=== PATIENT | female | born 2000 | race Caucasian/White ===

== ENCOUNTER 2022-03-01 16:39 | Emergency (ER) | payer BC, SELFPAY ==
[2022-03-01 16:51] VITALS: BP 115/70; PULSE 80; RESP 18; TEMP 36.2; O2SAT 100; BMI 29.2
--- NOTE | 2022-03-01 18:15 | CRLHL7_ITS ---
For Patients: As a result of the Cures Act, medical imaging exams and procedure reports are released immediately into your electronic medical record. You may view this report before your referring provider. If you have questions, please contact your health care provider. Indication: Injury, pain Technique: Right hand 3 views. Comparison: None Findings: Bones: Alignment is normal. No fractures or bone lesions. Joint spaces: Unremarkable. Soft tissues: Unremarkable. Impression: Unremarkable right hand. Dictated by Israel Hollingsworth MD @ 03/01/2022 7:06:02 PM (Electronically Signed)
--- NOTE | 2022-03-01 18:39 | ED.UPPEXIN ---
HPI - Extremity Injury (Upper) General Chief Complaint: Extremity Pain/Injury, Upper Stated Complaint: Right Hand Injury Time Seen by Provider: 03/01/22 16:43 History of Present Illness HPI narrative: Kayleen waters is a 21-year-old female patient presents emergency department after striking a wall at approximately 2:00 a.m. this a.m.. The patient states that she was intoxicated at the time of injury. She states as the day has progressed, she has developed increasing swelling, bruising, and pain. She has not been previously seen or evaluated for this acute concern. She denies any medications prior to evaluation. Kayleen denies numbness, tingling, or weakness apart from secondary to pain. She denies other acute concerns or complaints. MD complaint: injury to: left Related Data Home Medications Medication Instructions Recorded Confirmed prazosin 1 mg capsule 1 mg PO DAILY 03/01/22 03/01/22 sertraline 50 mg tablet 50 mg PO DAILY 03/01/22 03/01/22 Allergies Allergy/AdvReac Type Severity Reaction Status Date / Time codeine Allergy Verified 03/01/22 16:54 Penicillins Allergy Verified 03/01/22 16:54 Review of Systems Const: Denies: fever, chills, fatigue or malaise Eyes: Denies: change in vision or blurry vision ENMT: Denies: neck pain Musculo: Reports: extremity pain, extremity swelling, joint pain, limited range of motion and joint swelling; Denies: back pain or neck pain Integ/Breast: Reports: skin pain, skin swelling and other (bruising) Neuro: Denies: numbness in extremities, weakness in extremities, lack of coordination or involuntary movements Endo: Denies: fatigue Master/Lymph: Denies: easy bruising PFSH PFSH Social History Smoking Status: Never smoker Do you use any of these nicotine containing products: None Second hand tobacco smoke exposure: No How often do you have a drink containing alcohol: 2-4 times a month How many standard drinks containing alcohol do you have on a typical day: 1 or 2 How often do you have six or more drinks on one occasion: Never AUDIT-C Alcohol total score: 2 Non-prescribed substance use: denies use service: No Exam Const: Vital Signs, click to edit/add: Vital Signs - 24 hr 03/01/22 16:51 Temperature 97.2 F L Pulse Rate [Right Pulse Oximeter] 80 Respiratory Rate 18 Blood Pressure [Ri ght Upper Arm] 115/70 Pulse Oximetry 100 Documenting provider has reviewed patient's vital signs: yes Common normals: no apparent distress, average body habitus, oriented x3, no limitations, healthy appearing, alert and well nourished Orientation/consciousness: Yes awake, Yes oriented to person, Yes oriented to place and Yes oriented to time HENMT: Common normals: normocephalic, head/scalp atraumatic and hearing grossly normal bilaterally Head and scalp: normocephalic and atraumatic Eye: Common normals: EOMs intact bilaterally General eye: normal appearance of both eyes Resp: Common normals: normal respiratory effort, no retractions, no use of accessory muscles and clear to auscultation bilaterally Effort & inspection: able to speak in complete sentences Auscultation: clear to auscultation bilaterally Cardio: Common normals: regular rate, regular rhythm, S1 normal heart sound, S2 normal heart sound, no gallops, no clicks and no murmurs Rate: regular rate Rhythm: regular rhythm Heart sounds: S1 normal and S2 normal Back & Pelvis: Common normals: thoracic and lumbar spine normal to inspection Extremity: General: normal exam except as noted Right upper extremity: hand and digits Right hand and digits: inspection (swollen and edematous; bruised), palpation (tender to palpation with increased tenderness noted at 3rd MCP joint), ROM exam (full with tenderness noted on active testing), neurovascular exam (sensation and motor intact) and hand special tests Neuro: Common normals: oriented x3, CN's II-XII intact bilaterally, moves all extremities, no focal motor deficits and no sensory deficits noted Sensorium/orientation: awake, alert, oriented to person, oriented to place and oriented to time Gait (neuro): normal gait Motor exam: muscle tone normal throughout and no movement abnormalities noted Psych: Common normals: mental status grossly normal, thought process normal, cooperative, affect normal and activity/motor behavior normal Appearance: grossly normal Thought process: normal thought process Skin: Common normals: no rashes or lesions noted General skin exam: no rashes or lesions noted Course Course Hospital Course: Kayleen presented to the ED for evaluation and treatment of right hand pain after injury 2/2 hitting a wall. The patient had imaging and was given an brody wrap for compression to assist with swelling and symptoms. The patient was offered pain medication but was declined. Patient reports improvement in symptoms. Patient's vital signs have remained stable. The results were discussed, and the patient verbalized understanding. Reasons for follow-up or return were discussed. Vital Signs Vital signs: Initial Vital Signs Temperature 97.2 F L 03/01/22 16:51 Temperature Source Temporal Artery Scan 03/01/22 16:51 Pulse Rate 80 03/01/22 16:51 Pulse Rhythm 03/01/22 16:51 Respiratory Rate 18 03/01/22 16:51 Blood Pressure 115/70 03/01/22 16:51 Blood Pressure Mean 85 03/01/22 16:51 Blood Pressure Position Sitting 03/01/22 16:51 Pulse Oximetry 100 03/01/22 16:51 Vital Signs Temperature 97.2 F L 03/01/22 16:51 Pulse Rate 80 03/01/22 16:51 Respiratory Rate 18 03/01/22 16:51 Blood Pressure 115/70 03/01/22 16:51 Pulse Oximetry 100 03/01/22 16:51 Temperature 97.2 F L 03/01/22 16:51 Pulse Rate 80 03/01/22 16:51 Respiratory Rate 18 03/01/22 16:51 Blood Pressure 115/70 03/01/22 16:51 Pulse Oximetry 100 03/01/22 16:51 MDM - Extremity Injury (Upper) MDM Narrative Medical decision making narrative: Differential diagnoses considered include: sprain and strain, contusion, nerve root entrapment, radiculopathy, muscle spasm, dislocation, and fracture. Imaging Data Hand XR: My impression: No acute fracture or dislocation. Radiologist's impression: Impression: Unremarkable right hand. Discharge Plan Discharge Clinical Impression: Contusion of hand including fingers Patient Disposition: Home, Self-Care Condition: Improved Instructions: Contusion in Adults (ED) Activity Level: Activity as Tolerated Discharge Diet: Regular and Heart Healthy (2 gm sodium, low fat) Prescriptions: No Action prazosin 1 mg capsule 1 mg PO DAILY sertraline 50 mg tablet 50 mg PO DAILY Follow Up/Referrals: Katina Frazier MD [Primary Care Provider] - Stand Alone Forms: [employer] Info Instructions
== END 2022-03-01 19:02 | disposition home or self-care (01) ==
PROVIDERS: Emergency Provider Family Medicine; PCP Pediatrics
DX: S60.221A Contusion of right hand, initial encounter (principal); W22.8XXA Striking against or struck by other objects, initial encounter
CPT/HCPCS: 73130; 99281; 99283

== ENCOUNTER 2022-10-18 21:12 | Emergency (ER) | payer BC, SELFPAY ==
[2022-10-18 21:28] VITALS: BP 114/66; PULSE 114; RESP 16; TEMP 36.6; O2SAT 100; BMI 28.0
--- NOTE | 2022-10-18 22:34 | CRLHL7_ITS ---
For Patients: As a result of the Century Cures Act, medical imaging exams and procedure reports are released immediately into your electronic medical record. You may view this report before your referring provider. If you have questions, please contact your health care provider. INDICATION: Right lower quadrant pain. TECHNIQUE: CT abdomen and pelvis acquired with 100 cc Omnipaque 350 IV contrast. COMPARISON: None. FINDINGS: Lower chest: Unremarkable. Liver: Unremarkable. Normal in size and attenuation. No suspicious masses. Gallbladder and bile ducts: Unremarkable. No stones or inflammation. No biliary dilatation. Pancreas: Unremarkable. No mass or inflammation. Spleen: Unremarkable. Normal in size. No masses. Adrenal glands: Unremarkable. No nodules. Kidneys: Unremarkable. No suspicious masses, stones, or hydronephrosis. GI tract: Unremarkable. Normal in caliber. No sign of mass or inflammation. Normal appendix. Vasculature: Abdominal aorta is normal in caliber. Mesenteric arteries are patent. Lymph nodes: No lymphadenopathy. Peritoneum/Abdominal Wall: Small amount of free fluid in the right adnexa and the inferior right paracolic gutter. No free air. Unremarkable abdominal wall. Pelvis: 5.4 cm mildly complex cystic lesion in the right adnexa. Unremarkable uterus and left ovary. Bones: Mild S shaped scoliotic curvature of the spine. Otherwise, unremarkable for age. IMPRESSION: 5.4 cm mildly complex cyst in the right adnexa. Recommend pelvic ultrasound for further characterization and to exclude ovarian torsion. Normal appendix. No other acute findings in the abdomen and pelvis. Please note that all CT scans at this facility use dose modulation, iterative reconstruction, and/or weight-based dosing when appropriate to reduce radiation dose to as low as reasonably achievable. Dictated by Jono Lara MD @ 10/19/2022 12:05:48 AM (Electronically Signed)
--- NOTE | 2022-10-18 22:35 | ED.GENADULT ---
HPI - General Adult General Chief complaint: Abdominal Pain Stated complaint: Lower right stomach pain since yesterday Time Seen by Provider: 10/18/22 22:14 Source: patient Mode of arrival: ambulatory Limitations: no limitations History of Present Illness HPI narrative: 21-year-old female coming in today complaining of right lower quadrant pain has started yesterday. Pain has been progressively getting worse today. She has felt nauseated but has not vomited. Denies any fevers or chills. Movement makes it worse. She has had a decreased appetite today. Last bowel movement was today and was normal. She has no urinary urgency or dysuria, does complain of increased frequency. Patient is sexually active in a homosexual, monogamous relationship. Her last menses was 3 weeks ago and was normal. She states that the car ride did make her pain worse. She generally healthy and takes no medications. Denies any intra-abdominal surgeries in the past. Related Data Home Medications Medication Instructions Recorded Confirmed sertraline 50 mg tablet 50 mg PO DAILY 03/01/22 10/18/22 Allergies Allergy/AdvReac Type Severity Reaction Status Date / Time codeine Allergy Verified 03/01/22 16:54 Penicillins Allergy Verified 03/01/22 16:54 Review of Systems Status of ROS: Reports: 10 or more systems reviewed and unremarkable except as noted in History and below [facility] Social History Smoking Status: Never smoker Do you use any of these nicotine containing products: None Second hand tobacco smoke exposure: No How often do you have a drink containing alcohol: 2-4 times a month How many standard drinks containing alcohol do you have on a typical day: 1 or 2 How often do you have six or more drinks on one occasion: Never AUDIT-C Alcohol total score: 2 Non-prescribed substance use: denies use service: No Exam Narrative: Exam Narrative: Well-nourished well-developed patient in no acute distress. Alert and oriented. Answers questions appropriately. Mood and affect are appropriate. Thoughts are goal oriented and rational. No tangential or magical thinking noted. Patient speaks in full sentences without needing to catch their breath. HEENT: Normocephalic atraumatic. Pupils are equally round reactive to light. Extraocular muscles are intact. Conjunctivae are moist without any icterus noted. Moist mucous membranes. Posterior pharynx is normal. Neck is soft without any lymphadenopathy or thyromegaly. No masses are appreciated. Cardiovascular: Heart is regular rate and rhythm S1 and S2 are present without any murmurs. Lungs: Clear to auscultation bilaterally no wheezes rhonchi or rales are appreciated. Patient takes deep breaths without any discomfort. Abdomen: Soft and nondistended. Patient has pain at McBurney's point, pain radiates down into the right lower quadrant. She does have rebound tenderness. She has normal bowel sounds. She has a negative psoas sign. She has a positive Rovsing's sign. Extremities: Bilateral lower extremities are without edema. Normal DP and PT pulses. Skin: Well perfused without any obvious rashes. Const: Vital Signs, click to edit/add: Vital Signs - 24 hr 10/18/22 21:28 Temperature 98 F Pulse Rate [Pulse Oximeter] 114 H Respiratory Rate 16 Blood Pressure [Ri ght Upper Arm] 114/66 Pulse Oximetry 100 Oxygen Delivery Me thod Room Air Course Course Hospital Course: IV was established and labs were drawn. Given her abnormal abdominal exam, with pain extending into McBurney's point, abdominal CT was ordered to rule out appendicitis. Other things considered include UTI, kidney stone, ovarian cyst, ectopic . CT scan showing a right adnexal complex cyst, normal appendix. Vital Signs Vital signs: Initial Vital Signs Temperature 98 F 10/18/22 21:28 Temperature Source Temporal Artery Scan 10/18/22 21:28 Pulse Rate 114 H 10/18/22 21:28 Respiratory Rate 16 10/18/22 21:28 Blood Pressure 114/66 10/18/22 21:28 Blood Pressure Mean 82 10/18/22 21:28 Pulse Oximetry 100 10/18/22 21:28 Oxygen Delivery Method Room Air 10/18/22 21:28 Vital Signs Temperature 98 F 10/18/22 21:28 Pulse Rate 114 H 10/18/22 21:28 Respiratory Rate 16 10/18/22 21:28 Blood Pressure 114/66 10/18/22 21:28 Pulse Oximetry 100 10/18/22 21:28 Oxygen Delivery Method Room Air 10/18/22 21:28 Temperature 98 F 10/18/22 21:28 Pulse Rate 114 H 10/18/22 21:28 Respiratory Rate 16 10/18/22 21:28 Blood Pressure 114/66 10/18/22 21:28 Pulse Oximetry 100 10/18/22 21:28 Oxygen Delivery Method Room Air 10/18/22 21:28 Medical Decision Making MDM Narrative Medical decision making narrative: 21-year-old female with a right-sided ovarian complex cyst. Patient should have a ultrasound for further characterization. We will set this up for her as an outpatient. In the meantime we discussed symptomatic treatment. Lab Data Lab results reviewed: Yes I reviewed the patient's lab results Labs: Lab Results 10/18/22 10/18/22 Range/Units 22:00 22:40 WBC 10.07 (4.50-11.00) K/uL RBC 4.58 (4.00-5.20) m/uL Hgb 13.5 (12.0-16.0) gm/dL Hct 40.2 (33.0-51.0) % MCV 88 (80-100) fL MCH 30 (26-34) pg MCHC 34 (32-36) gm/dL Plt Count 243 (140-440) K/uL Neut % (Auto) 58.8 (42.0-72.0) % Lymph % (Auto) 28.9 (20-44) % [place] % (Auto) 9.1 (0.0-11.0) % Eos % (Auto) 1.9 (0.0-7.0) % Baso % (Auto) 0.2 (0.0-3.0) % Neut # (Auto) 5.90 (1.7-7.0) K/uL Lymph # (Auto) 2.90 (0.90-2.90) K/uL [place] # (Auto) 0.90 (0.00-0.90) K/UL Eos # (Auto) 0.20 (0.00-0.50) K/uL Baso # (Auto) 0.00 (0.00-0.30) K/uL ESR 7 (2-20) mm/hr Sodium 131 L (135-149) mmol/L Potassium 3.6 (3.6-5.1) mmol/L Chloride 97 (96-114) mmol/L Carbon Dioxide 27 (20-32) mmol/L BUN 11 (5-24) mg/dL Creatinine 0.7 (0.6-1.2) mg/dL Estimated Creat Clear 111.62 Estimated GFR 128 ml/min Glucose 88 (60-115) mg/dL Lactate 1.0 (0.5-1.9) mmol/L Calcium 9.2 (8.7-10.8) mg/dL Total Bilirubin 0.4 (0.1-1.5) mg/dL Direct Bilirubin 0.2 (0.0-0.5) mg/dL AST 29 (12-35) U/L ALT 26 (4-35) U/L Alkaline Phosphatase 69 (40-150) U/L C-Reactive Protein < 0.5 L (0.5-1.0) mg/dL Total Protein 7.8 (6.0-8.3) g/dL Albumin 4.4 (3.3-5.0) g/dL Lipase 63 (23-300) U/L HCG, Qual Negative (Negative) Urine Color Yellow (Yellow) Urine Appearance Slightly Cloudy A (Clear) Urine pH 8.0 (5.0-8.5) Ur Specific [place] 1.015 (1.000-1.030) Urine Protein Negative (Negative) Urine Glucose (UA) Negative (Negative) Urine Ketones Negative (Negative) Urine Blood Negative (Negative) Urine Nitrite Negative (Negative) Urine Bilirubin Negative (Negative) Urine Urobilinogen 0.2 (0.2-1.0) Ur Leukocyte Esterase Negative (Negative) Urine RBC 2-5 A (0-2) Urine WBC 25-50 A (0-5) Ur Squamous Epith Cells Moderate A (None-Few) Other Sediment YEAST (None) Urine Bacteria Moderate A (None) Imaging Data CT scan - abdomen: Attestation: I have reviewed the pertinent imaging results. Radiologist's impression: CT abdomen and pelvis acquired with 100 cc Omnipaque 350 IV contrast. COMPARISON: None. FINDINGS: Lower chest: Unremarkable. Liver: Unremarkable. Normal in size and attenuation. No suspicious masses. Gallbladder and bile ducts: Unremarkable. No stones or inflammation. No biliary dilatation. Pancreas: Unremarkable. No mass or inflammation. Spleen: Unremarkable. Normal in size. No masses. Adrenal glands: Unremarkable. No nodules. Kidneys: Unremarkable. No suspicious masses, stones, or hydronephrosis. GI tract: Unremarkable. Normal in caliber. No sign of mass or inflammation. Normal appendix. Vasculature: Abdominal aorta is normal in caliber. Mesenteric arteries are patent. Lymph nodes: No lymphadenopathy. Peritoneum/Abdominal Wall: Small amount of free fluid in the right adnexa and the inferior right paracolic gutter. No free air. Unremarkable abdominal wall. Pelvis: 5.4 cm mildly complex cystic lesion in the right adnexa. Unremarkable uterus and left ovary. Bones: Mild S shaped scoliotic curvature of the spine. Otherwise, unremarkable for age. IMPRESSION: 5.4 cm mildly complex cyst in the right adnexa. Recommend pelvic ultrasound for further characterization and to exclude ovarian torsion. Normal appendix. No other acute findings in the abdomen and pelvis. Discharge Plan Discharge Clinical Impression: Ovarian cyst Patient Disposition: Home, Self-Care Condition: Stable Additional Instructions: Okay to use ibuprofen 600 mg 3 times a day with meal as needed. Okay to use a heating pad to the uncomfortable area, do not apply heat directly to skin. You will need to have if ultrasound is outpatient-information will be provided to you to set up an appointment with primary care provider to get this done. Prescriptions: No Action sertraline 50 mg tablet 50 mg PO DAILY Follow Up/Referrals: Katina Frazier MD [Primary Care Provider] - Stand Alone Forms: [employer] Info Instructions
[2022-10-18 22:38] LABS: Appearance Urine Slightly Cloudy (Clear); Bilirubin Urine Negative (Negative); Blood Urine Negative (Negative); Color Urine Yellow (Yellow); Glucose Urine Negative (Negative); Ketones Urine Negative (Negative); Leukocyte Esterase Urine Negative (Negative); Nitrite Urine Negative (Negative); Protein Urine Negative (Negative); Specific Gravity Urine 1.015 (1.000-1.030); Urobilinogen Urine 0.2 (0.2-1.0)
[2022-10-18 22:52] LABS: Bacteria Urine Moderate; Other Sediment Urine YEAST; Squamous Epithelial Cell Urine Moderate (None-Few); WBC Urine 25-50 (0-5)
[2022-10-18 22:53] LABS: HCG Qualitative* Negative (Negative)
[2022-10-18 23:15] LABS: Albumin* 4.4 g/dL (3.3-5.0); Chloride* 97 mmol/L (96-114); Potassium* 3.6 mmol/L (3.6-5.1)
[2022-10-18 23:17] LABS: Creatinine* 0.7 mg/dL (0.6-1.2); Est. Creatinine Clearance* 111.62; Estimated Glomerular Filt Rate 128 ml/min
[2022-10-18 23:18] LABS: Alkaline Phosphatase* 69 U/L (40-150); Aspartate Amino Transferase* 29 U/L (12-35); Bilirubin Direct* 0.2 mg/dL (0.0-0.5); Bilirubin Total* 0.4 mg/dL (0.1-1.5); Blood Urea Nitrogen* 11 mg/dL (5-24); Calcium* 9.2 mg/dL (8.7-10.8); Carbon Dioxide* 27 mmol/L (20-32); Glucose* 88 mg/dL (60-115); Lipase* 63 U/L (23-300); Sodium* 131 mmol/L (135-149); Total Protein* 7.8 g/dL (6.0-8.3)
[2022-10-18 23:19] LABS: Alanine Aminotransferase* 26 U/L (4-35)
[2022-10-18 23:20] LABS: Hematocrit 40.2 % (33.0-51.0); Hemoglobin* 13.5 gm/dL (12.0-16.0); Mean Corpuscular Volume 88 fL (80-100); Red Blood Count 4.58 m/uL (4.00-5.20); White Blood Count* 10.07 K/uL (4.50-11.00)
[2022-10-18 23:21] LABS: Basophils Percent Auto 0.2 % (0.0-3.0); C Reactive Protein* < 0.5 mg/dL (0.5-1.0); Eosinophils Percent Auto 1.9 % (0.0-7.0); Immature Granulocytes Pct Auto 1.1 %; Lymphocytes Percent Auto 28.9 % (20-44); Mean Corpuscular HGB Conc 34 gm/dL (32-36); Mean Corpuscular Hemoglobin 30 pg (26-34); Monocytes Percent Auto 9.1 % (0.0-11.0); Neutrophils Percent Auto 58.8 % (42.0-72.0); Platelet Count* 243 K/uL (140-440); Slide Review Reflex No
[2022-10-19 00:06] LABS: Erythrocyte SedimentationRate* 7 mm/hr (2-20)
== END 2022-10-19 00:35 | disposition home or self-care (01) ==
PROVIDERS: Emergency Provider Family Medicine; PCP Pediatrics
DX: N83.201 Unspecified ovarian cyst, right side (principal)
CPT/HCPCS: 36415; 74177; 80048; 80076; 81001; 83605; 83690; 84703; 85025; 85651; 86140; 87086; 99284; Q9967

== ENCOUNTER 2022-10-20 16:44 | Outpatient (CLI) | payer BC, SELFPAY ==
--- NOTE | 2022-10-20 17:00 | CRLHL7_ITS ---
For Patients: As a result of the Century Cures Act, medical imaging exams and procedure reports are released immediately into your electronic medical record. You may view this report before your referring provider. If you have questions, please contact your health care provider. CLINICAL HISTORY: right adnexa mass seen on CT CT 10/18/2022 TECHNIQUE: 2D eng scale and color Doppler images were acquired of the pelvis using a transvaginal approach. Spectral Doppler evaluation of the right ovary also performed. FINDINGS: On transvaginal imaging, the myometrium has a normal uniform echotexture. The uterus measures 7.5 x 3.3 x 4.3 cm. The endometrial lining and measures 12 mm in thickness. The left ovary measures 3.0 x 2.3 x 1.9 cm in size and the right ovary measures 6.4 x 5.0 x 5.8 cm. The ovaries demonstrate normal arterial and venous blood flow on color Doppler analysis. Normal spectral Doppler evaluation of the right ovary. Moderate pelvic free fluid is present. The right ovarian echotexture is heterogeneous with suspicion of a large complex cyst containing hypoechoic internal echotexture along with areas of fluid measuring 5.3 x 4.7 x 4.8 cm. IMPRESSION: Enlarged right ovary without torsion. Suspicion of a hemorrhagic right ovarian cyst measuring 5.3 cm. Moderate pelvic free fluid. Follow-up in 8-12 weeks recommended for further evaluation. Dictated by Israel Hollingsworth MD @ 10/21/2022 10:50:53 AM (Electronically Signed)
== END 2022-10-20 16:45 | disposition home or self-care (01) ==
LOC: US 16:46
PROVIDERS: PCP Pediatrics; Visit Provider Family Medicine
DX: R19.03 Right lower quadrant abdominal swelling, mass and lump (principal); N83.201 Unspecified ovarian cyst, right side; N83.8 Other noninflammatory disorders of ovary, fallopian tube and broad ligament
CPT/HCPCS: 76830; 93976

== ENCOUNTER 2022-10-28 20:40 | Emergency (ER) | payer BC, SELFPAY ==
[2022-10-28 22:00] VITALS: BP 115/73; PULSE 74; RESP 16; TEMP 36.4; O2SAT 100; BMI 29.2
--- NOTE | 2022-10-28 22:37 | ED.ABDPAIN ---
HPI - Abdominal Pain General Chief Complaint: Abdominal Pain Stated Complaint: Poss Ovarian Cyst Vaginal Bleeding Pain Time Seen by Provider: 10/28/22 22:15 History of Present Illness HPI narrative: This 21-year-old female comes in reporting right lower quadrant abdominal pain for the past week or more. She has been seen in the emergency department for this type of pain and did have a CT scan of her abdomen and pelvis which showed evidence of a right ovarian cyst. She did follow-up with an ultrasound that verified these same findings and ruled out any evidence of torsion. The patient returns today because her pain was more intense. She states that she has just been taking Tylenol and was not prescribed any medicine for pain. She does have von Willebrand's disease and does not take NSAIDs. She also reports some midcycle vaginal bleeding but this is not excessive. She did have some lightheadedness and nausea with 1 vomiting episode when the pain was more intense earlier today but arrives here with normal vital signs and no such symptoms. Related Data Home Medications Medication Instructions Recorded Confirmed sertraline 50 mg tablet 50 mg PO DAILY 03/01/22 10/18/22 Previous Rx's Medication Instructions Recorded hydrocodone 5 mg-acetaminophen 325 1 tab PO Q4-6H PRN pain #15 tabs 10/28/22 mg tablet Allergies Allergy/AdvReac Type Severity Reaction Status Date / Time codeine Allergy Verified 03/01/22 16:54 Penicillins Allergy Verified 03/01/22 16:54 Review of Systems Status of ROS Reports: 10 or more systems reviewed and unremarkable except as noted in History and below Narrative Constitutional: No fevers, no weight gain or loss. Eyes: No discharge. No vision changes. HENT: No congestion, no sore throat, no ear pain. Cardiovascular: No chest pain, no palpitations. Respiratory: No shortness of breath, no wheezes, no cough. Gastrointestinal: Abdominal pain as described above. No diarrhea. An episode of nausea and emesis earlier today. Genitourinary: No dysuria, no hematuria. Musculoskeletal: Normal range of motion. Skin: No rashes, no pruritis. Neurological: No dizziness, weakness, sensory change, speech change. Endo/Heme/Allergies: No bruising or bleeding. No polydipsia. Pysch: no suicidality, no anxiety, no insomnia. All other systems reviewed and are negative. PFSH PFS Social History Smoking Status: Never smoker Do you use any of these nicotine containing products: None Second hand tobacco smoke exposure: No How often do you have a drink containing alcohol: 2-4 times a month How many standard drinks containing alcohol do you have on a typical day: 1 or 2 How often do you have six or more drinks on one occasion: Never AUDIT-C Alcohol total score: 2 Non-prescribed substance use: denies use service: No Exam Narrative: Exam Narrative: Constitutional: Well-developed, well-nourished, no acute distress. HEENT: Normocephalic, atraumatic. Neck: Normal range of motion. Nontender. Supple. Heart: Regular. No murmurs. Normal rate. Intact distal pulses. Lungs: Clear to auscultation. No chest discomfort. No wheezes, rhonchi, or rales. Abdomen: Normal bowel sounds. Tenderness over the right ovary in the lower right abdomen. Mild rebound tenderness. Genitalia: Deferred. Back: No midline tenderness. Normal range of motion. Extremities: Normal range of motion. No injury. Skin: Intact. No rash. Warm. No erythema or pallor. Neurologic: No altered sensation. No weakness. Alert and oriented. Psychiatric: No suicidality. No anxiety or depression. No insomnia. Nursing notes and vitals signs are reviewed. Const: Vital Signs, click to edit/add: Vital Signs - 24 hr 10/28/22 22:00 Temperature 97.6 F Pulse Rate [Left P ulse Oximeter] 74 Respiratory Rate 16 Blood Pressure [Le ft Upper Arm] 115/73 Pulse Oximetry 100 Oxygen Delivery Me thod Room Air Course Vital Signs Vital signs: Initial Vital Signs Temperature 97.6 F 10/28/22 22:00 Temperature Source Temporal Artery Scan 10/28/22 22:00 Pulse Rate 74 10/28/22 22:00 Pulse Rhythm Regular 10/28/22 22:00 Pulse Strength 3+ Normal 10/28/22 22:00 Respiratory Rate 16 10/28/22 22:00 Blood Pressure 115/73 10/28/22 22:00 Blood Pressure Mean 87 10/28/22 22:00 Blood Pressure Position Sitting 10/28/22 22:00 Pulse Oximetry 100 10/28/22 22:00 Oxygen Delivery Method Room Air 10/28/22 22:00 Vital Signs Temperature 97.6 F 10/28/22 22:00 Pulse Rate 74 10/28/22 22:00 Respiratory Rate 16 10/28/22 22:00 Blood Pressure 115/73 10/28/22 22:00 Pulse Oximetry 100 10/28/22 22:00 Oxygen Delivery Method Room Air 10/28/22 22:00 Temperature 97.6 F 10/28/22 22:00 Pulse Rate 74 10/28/22 22:00 Respiratory Rate 16 10/28/22 22:00 Blood Pressure 115/73 10/28/22 22:00 Pulse Oximetry 100 10/28/22 22:00 Oxygen Delivery Method Room Air 10/28/22 22:00 MDM - Abdominal Pain MDM Narrative Medical decision making narrative: This patient comes in with persistent right lower quadrant abdominal pain that was diagnosed as an ovarian cyst last week. She has continued to have discomfort but does not report any new symptoms other than some mild midcycle vaginal bleeding. I did discuss lab and imaging options with the patient and stated that these can certainly be repeated. In a process of shared decision making she declined any further study. I stated that I was happy to do a better job of treating her pain and recommended a prescription of [place] and Zofran. Patient agreed with this plan. She understands signs or symptoms that would indicate a need for return and re-evaluation. Discharge Plan Discharge Clinical Impression: Ovarian cyst Patient Disposition: Home, Self-Care Condition: Unchanged Additional Instructions: Take medication as needed and indicated. Follow-up with OBGYN clinic if not improving or worsening. Also return to emergency department if worsening. Prescriptions: New hydrocodone-acetaminophen 5-325 mg tablet 1 tab PO Q4-6H PRN (Reason: pain) Qty: 15 0RF No Action sertraline 50 mg tablet 50 mg PO DAILY Follow Up/Referrals: Katina Frazier MD [Primary Care Provider] - Stand Alone Forms: [employer] Info Instructions
== END 2022-10-28 22:56 | disposition home or self-care (01) ==
LOC: ED 22:48
PROVIDERS: Emergency Provider Emergency Medicine Emergency Medical Services; PCP Pediatrics
DX: N83.201 Unspecified ovarian cyst, right side (principal)
CPT/HCPCS: 99284

== ENCOUNTER 2022-12-25 10:57 | Outpatient (CLI) | payer BC, SELFPAY ==
--- NOTE | 2022-12-25 11:15 | CRLHL7_ITS ---
For Patients: As a result of the Century Cures Act, medical imaging exams and procedure reports are released immediately into your electronic medical record. You may view this report before your referring provider. If you have questions, please contact your health care provider. CLINICAL HISTORY: Follow-up right ovarian cyst Comparison 10/20/2022 TECHNIQUE: 2D eng scale ultrasound. In addition color Doppler and spectral Doppler analysis was performed of the pelvis using a transvaginal approach. FINDINGS: On transvaginal imaging, the myometrium has a normal uniform echotexture. The uterus measures 7.2 x 2.8 x 4.2 cm. The endometrial lining appears normal and measures 5 mm in thickness. The right ovary measures 3.9 x 2.7 x 3.1 cm in size and the left ovary measures 3.4 x 2.0 x 3.1 cm. Decreased size of right ovarian cyst, now measuring 2.8 x 2.3 x 2.6 cm. Previously, this measured 5.3 cm. The ovaries demonstrate normal arterial and venous blood flow on color Doppler and spectral Doppler analysis. There are no suspicious fluid collections within the cul-de-sac. IMPRESSION: Decreased size of complex right ovarian cyst compared to the prior study, now measuring 2.8 cm, most consistent with a hemorrhagic cyst. Dictated by Israel Hollingsworth MD @ 12/25/2022 12:12:39 PM (Electronically Signed)
== END 2022-12-25 10:58 | disposition home or self-care (01) ==
LOC: US 10:58
PROVIDERS: PCP Pediatrics; Visit Provider Obstetrics & Gynecology
DX: N83.201 Unspecified ovarian cyst, right side (principal)
CPT/HCPCS: 76830; 93976

== ENCOUNTER 2024-06-02 20:36 | Emergency (ER) | payer BC, SELFPAY ==
[2024-06-02 20:47] VITALS: BP 118/60; PULSE 95; RESP 16; TEMP 36.7; O2SAT 98; BMI 28.8
--- NOTE | 2024-06-02 20:55 | ED.NAVMDI ---
HPI - Nausea/Vomiting/Diarrhea General Date Seen: 06/02/24 Chief complaint: Nausea/Vomiting Stated complaint: vomiting, dehydrated Time Seen by Provider: 06/02/24 20:40 Source: patient Mode of arrival: ambulatory Limitations: no limitations History of Present Illness HPI Narrative: Patient is a 23-year-old female presenting to emergency department for nausea and vomiting has been going on for the past few days. She states symptoms started about 3 days ago and she initially had a fever but has not had a fever for the past couple days. States she vomits whenever she tries to eat anything. Has had some mild lightheadedness. Denies chest pain, shortness of breath, headache, weakness, numbness, body aches. She is concerned she has the flu. Is not aware of any sick contacts. Has not had any diarrhea. Has been able to tolerate small amounts of water at a time but has also tried this take some Tylenol and has vomited up to Tylenol. Has not had any nausea medication. Denies symptoms like this before. Has pain in the epigastric region that she states started after the vomiting. She thinks the pain is from her vomiting. States she has vomited at least 10 times in the past 2 days. Related Data Home Medications ?Medication ?Instructions ?Recorded ?Confirmed sertraline 50 mg tablet 50 mg PO DAILY 03/01/22 06/02/24 dextroamphetamine-amphetamine ER 1 cap PO DAILY 12/26/22 06/02/24 10 mg 24hr capsule,extend release (Adderall XR) buspirone 7.5 mg tablet mg PO 06/02/24 Allergies Allergy/AdvReac Type Severity Reaction Status Date / Time codeine Allergy Verified 12/26/22 10:46 Penicillins Allergy Verified 12/26/22 10:46 Review of Systems Status of ROS: Reports: 10 or more systems reviewed and unremarkable except as noted in History and below [facility] Medical History Right ovarian cyst (~10/18/22) ?N83.201 - Unspecified ovarian cyst, right side (ICD-10) Seasonal allergies ?J30.2 - Other seasonal allergic rhinitis (ICD-10) Scoliosis ?M41.9 - Scoliosis, unspecified (ICD-10) Von Willebrand disease ?D68.00 - Von Willebrand disease, unspecified (ICD-10) Surgical History History of tonsillectomy and adenoidectomy ?Z90.89 - Acquired absence of other organs (ICD-10) Social History Smoking Status: Former smoker Do you use any of these nicotine containing products: None Second hand tobacco smoke exposure: No How often do you have a drink containing alcohol: 2-4 times a month How many standard drinks containing alcohol do you have on a typical day: 1 or 2 How often do you have six or more drinks on one occasion: Never AUDIT-C Alcohol total score: 2 Non-prescribed substance use: denies use service: No Exam Narrative: Exam Narrative: Const: Well-nourished, Well-developed, in mild distress Eyes: PERRL, no conjunctival injection, and symmetrical lids HENT: Atraumatic external nose and ears. Moist mucous membranes. Neck: Symmetric, trachea midline, No thyromegaly. CVS: RRR, No murmurs or gallops. Peripheral pulses 2+ and equal in all extremities RESP: Unlabored respiratory effort. Clear to auscultation bilaterally. GI: Mild upper abdominal tenderness, Nondistended, No rebound or guarding. MSK:Extremities w/o deformity, Normal Active ROM Skin: Warm, Dry. No rashes or lesions. Neuro: Normal Muscle tone, No focal neurological deficits. Psych: Awake, Alert, & Oriented x3. Appropriate mood and affect. Const: Vital Signs, click to edit/add: Vital Signs - 24 hr 06/02/24 20:47 Temperature 98.1 F Pulse Rate [Pulse Oximeter] 95 Respiratory Rate 16 Blood Pressure [Ri ght Upper Arm] 118/60 Pulse Oximetry 98 Oxygen Delivery Me thod Room Air Course Vital Signs Vital signs: Initial Vital Signs Temperature 98.1 F 06/02/24 20:47 Temperature Source Temporal Artery Scan 06/02/24 20:47 Pulse Rate 95 06/02/24 20:47 Respiratory Rate 16 06/02/24 20:47 Blood Pressure 118/60 06/02/24 20:47 Blood Pressure Mean 79 06/02/24 20:47 Blood Pressure Position Supine 06/02/24 20:47 Pulse Oximetry 98 06/02/24 20:47 Oxygen Delivery Method Room Air 06/02/24 20:47 Vital Signs Temperature 98.1 F 06/02/24 20:47 Pulse Rate 95 06/02/24 20:47 Respiratory Rate 16 06/02/24 20:47 Blood Pressure 118/60 06/02/24 20:47 Pulse Oximetry 98 06/02/24 20:47 Oxygen Delivery Method Room Air 06/02/24 20:47 Temperature 98.1 F 06/02/24 20:47 Pulse Rate 95 06/02/24 20:47 Respiratory Rate 16 06/02/24 20:47 Blood Pressure 118/60 06/02/24 20:47 Pulse Oximetry 98 06/02/24 20:47 Oxygen Delivery Method Room Air 06/02/24 20:47 Medications Administered Medications: Discontinued Medications Generic Name Dose Route Start Last Admin Trade Name Freq PRN Reason Stop Dose Admin Sodium Chloride 500 mls @ 1,000 mls/hr 06/02/24 22:03 06/02/24 23:02 0.9 % Sodium Chloride 500 Ml IV 06/02/24 22:32 Infused .Q30M ONE Infusion Sodium Chloride 500 mls @ 1,000 mls/hr 06/02/24 22:03 06/02/24 23:02 0.9 % Sodium Chloride 500 Ml IV 06/02/24 22:32 Infused .Q30M ONE Infusion Ondansetron HCl 4 mg 06/02/24 20:55 06/02/24 21:07 Ondansetron Odt 4 Mg Tab PO 06/02/24 20:56 4 mg ONCE ONE Administration Ondansetron HCl 4 mg 06/02/24 22:42 06/02/24 22:47 Ondansetron 2 Mg/Ml Inj IVP 06/02/24 22:43 4 mg ONCE ONE Administration MDM - Nausea/Vomiting/Diarrhea MDM Narrative Medical decision making narrative: Patient is a 23-year-old female presenting to the emergency department for nausea and vomiting. Concerned she has been nauseated the past few days I will do some lab work to rule out any pancreatitis, electrolyte abnormalities, signs of infection. LFTs were also be ordered to look for signs of liver disease. Will try some oral disintegrating Zofran for her nausea and then will try a p.o. challenge. Due to the current fluid shortage because but her a cane will try and hold off on using IV fluids unless she cannot tolerate p.o. in the Lab work returned showing no concerning abnormalities. Did try to do the p.o. challenge after the oral Zofran and was unsuccessful. Due that will put an IV and give a L of normal saline and try IV Zofran. Patient is feeling much better after the L of fluids. Will be discharged and given a prescription of Zofran through [facility]. Symptoms are likely from a viral GI bug. She is agreeable to this plan. Lab Data Labs: Lab Results 06/02/24 06/02/24 06/02/24 Range/Units 21:04 21:04 21:04 WBC 10.84 (4.50-11.00) K/uL RBC 4.84 (4.00-5.20) m/uL Hgb 14.3 (12.0-16.0) gm/dL Hct 43.5 (33.0-51.0) % MCV 90 (80-100) fL MCH 30 (26-34) pg MCHC 33 (32-36) gm/dL RDW Coeff of Gilberto 12.6 (11.5-15.5) % Plt Count 302 (140-440) K/uL Neut % (Auto) 70.1 (42.0-72.0) % Lymph % (Auto) 19.7 L (20-44) % [place] % (Auto) 7.8 (0.0-11.0) % Eos % (Auto) 2.0 (0.0-7.0) % Baso % (Auto) 0.3 (0.0-3.0) % Neut # (Auto) 7.59 H (1.7-7.0) K/uL Lymph # (Auto) 2.10 (0.90-2.90) K/uL [place] # (Auto) 0.80 (0.00-0.90) K/UL Eos # (Auto) 0.22 (0.00-0.50) K/uL Baso # (Auto) 0.03 (0.00-0.30) K/uL Abs Immat Gran (auto) 0.01 (0.00-0.30) K/uL Imm/Tot Granulo (auto) 0.1 % Sodium 136 (135-149) mmol/L Potassium 3.9 (3.6-5.1) mmol/L Chloride 100 (96-114) mmol/L Carbon Dioxide 26 (20-32) mmol/L Anion Gap 10 (7-15) mEq/L BUN 8 (5-24) mg/dL Creatinine 0.7 (0.5-1.5) mg/dL Estimated Creat Clear 109.78 Estimated GFR 126 ml/min Glucose 93 (60-115) mg/dL Calcium 9.6 (8.4-10.6) mg/dL Total Bilirubin 0.5 Cancelled (0.1-1.5) mg/dL Direct Bilirubin 0.2 Cancelled (0.0-0.5) mg/dL AST 21 (12-35) U/L ALT (4-35) U/L Alkaline Phosphatase (40-150) U/L Total Protein (6.0-8.3) g/dL Albumin (3.3-5.0) g/dL Lipase (23-300) U/L HCG, Qual (Negative) SARS-CoV-2 (PCR) (Negative) Influenza Type A (PCR) (Negative) Influenza Type B (PCR) (Negative) RSV (PCR) (Negative) 06/02/24 06/02/24 06/02/24 Range/Units 21:04 21:04 21:04 WBC (4.50-11.00) K/uL RBC (4.00-5.20) m/uL Hgb (12.0-16.0) gm/dL Hct (33.0-51.0) % MCV (80-100) fL MCH (26-34) pg MCHC (32-36) gm/dL RDW Coeff of Gilberto (11.5-15.5) % Plt Count (140-440) K/uL Neut % (Auto) (42.0-72.0) % Lymph % (Auto) (20-44) % [place] % (Auto) (0.0-11.0) % Eos % (Auto) (0.0-7.0) % Baso % (Auto) (0.0-3.0) % Neut # (Auto) (1.7-7.0) K/uL Lymph # (Auto) (0.90-2.90) K/uL [place] # (Auto) (0.00-0.90) K/UL Eos # (Auto) (0.00-0.50) K/uL Baso # (Auto) (0.00-0.30) K/uL Abs Immat Gran (auto) (0.00-0.30) K/uL Imm/Tot Granulo (auto) % Sodium (135-149) mmol/L Potassium (3.6-5.1) mmol/L Chloride (96-114) mmol/L Carbon Dioxide (20-32) mmol/L Anion Gap (7-15) mEq/L BUN (5-24) mg/dL Creatinine (0.5-1.5) mg/dL Estimated Creat Clear Estimated GFR ml/min Glucose (60-115) mg/dL Calcium (8.4-10.6) mg/dL Total Bilirubin (0.1-1.5) mg/dL Direct Bilirubin (0.0-0.5) mg/dL AST Cancelled (12-35) U/L ALT 14 Cancelled (4-35) U/L Alkaline Phosphatase 67 Cancelled (40-150) U/L Total Protein 8.1 (6.0-8.3) g/dL Albumin (3.3-5.0) g/dL Lipase (23-300) U/L HCG, Qual (Negative) SARS-CoV-2 (PCR) (Negative) Influenza Type A (PCR) (Negative) Influenza Type B (PCR) (Negative) RSV (PCR) (Negative) 06/02/24 06/02/24 06/02/24 Range/Units 21:04 21:04 21:04 WBC (4.50-11.00) K/uL RBC (4.00-5.20) m/uL Hgb (12.0-16.0) gm/dL Hct (33.0-51.0) % MCV (80-100) fL MCH (26-34) pg MCHC (32-36) gm/dL RDW Coeff of Gilberto (11.5-15.5) % Plt Count (140-440) K/uL Neut % (Auto) (42.0-72.0) % Lymph % (Auto) (20-44) % [place] % (Auto) (0.0-11.0) % Eos % (Auto) (0.0-7.0) % Baso % (Auto) (0.0-3.0) % Neut # (Auto) (1.7-7.0) K/uL Lymph # (Auto) (0.90-2.90) K/uL [place] # (Auto) (0.00-0.90) K/UL Eos # (Auto) (0.00-0.50) K/uL Baso # (Auto) (0.00-0.30) K/uL Abs Immat Gran (auto) (0.00-0.30) K/uL Imm/Tot Granulo (auto) % Sodium (135-149) mmol/L Potassium (3.6-5.1) mmol/L Chloride (96-114) mmol/L Carbon Dioxide (20-32) mmol/L Anion Gap (7-15) mEq/L BUN (5-24) mg/dL Creatinine (0.5-1.5) mg/dL Estimated Creat Clear Estimated GFR ml/min Glucose (60-115) mg/dL Calcium (8.4-10.6) mg/dL Total Bilirubin (0.1-1.5) mg/dL Direct Bilirubin (0.0-0.5) mg/dL AST (12-35) U/L ALT (4-35) U/L Alkaline Phosphatase (40-150) U/L Total Protein Cancelled (6.0-8.3) g/dL Albumin 4.6 Cancelled (3.3-5.0) g/dL Lipase 36 Cancelled (23-300) U/L HCG, Qual Negative (Negative) SARS-CoV-2 (PCR) (Negative) Influenza Type A (PCR) (Negative) Influenza Type B (PCR) (Negative) RSV (PCR) (Negative) 06/02/24 Range/Units 21:05 WBC (4.50-11.00) K/uL RBC (4.00-5.20) m/uL Hgb (12.0-16.0) gm/dL Hct (33.0-51.0) % MCV (80-100) fL MCH (26-34) pg MCHC (32-36) gm/dL RDW Coeff of [place]berto (11.5-15.5) % Plt Count (140-440) K/uL Neut % (Auto) (42.0-72.0) % Lymph % (Auto) (20-44) % [place] % (Auto) (0.0-11.0) % Eos % (Auto) (0.0-7.0) % Baso % (Auto) (0.0-3.0) % Neut # (Auto) (1.7-7.0) K/uL Lymph # (Auto) (0.90-2.90) K/uL [place] # (Auto) (0.00-0.90) K/UL Eos # (Auto) (0.00-0.50) K/uL Baso # (Auto) (0.00-0.30) K/uL Abs Immat Gran (auto) (0.00-0.30) K/uL Imm/Tot Granulo (auto) % Sodium (135-149) mmol/L Potassium (3.6-5.1) mmol/L Chloride (96-114) mmol/L Carbon Dioxide (20-32) mmol/L Anion Gap (7-15) mEq/L BUN (5-24) mg/dL Creatinine (0.5-1.5) mg/dL Estimated Creat Clear Estimated GFR ml/min Glucose (60-115) mg/dL Calcium (8.4-10.6) mg/dL Total Bilirubin (0.1-1.5) mg/dL Direct Bilirubin (0.0-0.5) mg/dL AST (12-35) U/L ALT (4-35) U/L Alkaline Phosphatase (40-150) U/L Total Protein (6.0-8.3) g/dL Albumin (3.3-5.0) g/dL Lipase (23-300) U/L HCG, Qual (Negative) SARS-CoV-2 (PCR) Negative SARS-CoV-2 (Negative) Influenza Type A (PCR) Negative PCR FLU A (Negative) Influenza Type B (PCR) Negative PCR FLU B (Negative) RSV (PCR) Negative PCR RSV (Negative) Discharge Plan Discharge Clinical Impression: Nausea & vomiting Qualifiers: Vomiting type: unspecified Qualified Code(s): R11.2 - Nausea with vomiting, unspecified Instructions: Acute Nausea and Vomiting (DC) Additional Instructions: Take the Zofran as needed for nausea. Make sure to stay well hydrated. Return to emergency department for new or worsening symptoms. Prescriptions: No Action dextroamphetamine-amphetamine [Adderall XR] 10 mg capsule,extended release 24hr 1 cap PO DAILY sertraline 50 mg tablet 50 mg PO DAILY buspirone 7.5 mg tablet PO Follow Up/Referrals: Katina Frazier MD [Primary Care Provider] - Stand Alone Forms: [employer] Info Instructions
[2024-06-02] MEDS: ONDANSETRON ODT 4 MG TAB PO (21:07)
[2024-06-02 21:21] LABS: Basophils Absolute Auto 0.03 K/uL (0.00-0.30); Basophils Percent Auto 0.3 % (0.0-3.0); Eosinophils Absolute Auto 0.22 K/uL (0.00-0.50); Hematocrit 43.5 % (33.0-51.0); Hemoglobin* 14.3 gm/dL (12.0-16.0); Immature Granulocytes Abs Auto 0.01 K/uL (0.00-0.30); Immature Granulocytes Pct Auto 0.1 %; Lymphocytes Percent Auto 19.7 % (20-44); Mean Corpuscular HGB Conc 33 gm/dL (32-36); Mean Corpuscular Hemoglobin 30 pg (26-34); Mean Corpuscular Volume 90 fL (80-100); Monocytes Percent Auto 7.8 % (0.0-11.0); Neutrophils Absolute Auto 7.59 K/uL (1.7-7.0); Neutrophils Percent Auto 70.1 % (42.0-72.0); Platelet Count* 302 K/uL (140-440); RDW Coefficient of Variation % 12.6 % (11.5-15.5); Red Blood Count 4.84 m/uL (4.00-5.20); White Blood Count* 10.84 K/uL (4.50-11.00)
[2024-06-02 21:23] LABS: Slide Review Reflex No
[2024-06-02 21:36] LABS: Albumin* 4.6 g/dL (3.3-5.0); Chloride* 100 mmol/L (96-114); Sodium* 136 mmol/L (135-149)
[2024-06-02 21:37] LABS: Potassium* 3.9 mmol/L (3.6-5.1)
[2024-06-02 21:39] LABS: Alanine Aminotransferase* 14 U/L (4-35); Alkaline Phosphatase* 67 U/L (40-150); Anion Gap 10 mEq/L (7-15); Aspartate Amino Transferase* 21 U/L (12-35); Bilirubin Direct* 0.2 mg/dL (0.0-0.5); Bilirubin Total* 0.5 mg/dL (0.1-1.5); Blood Urea Nitrogen* 8 mg/dL (5-24); Calcium* 9.6 mg/dL (8.4-10.6); Carbon Dioxide* 26 mmol/L (20-32); Creatinine* 0.7 mg/dL (0.5-1.5); Est. Creatinine Clearance* 109.78; Estimated Glomerular Filt Rate 126 ml/min; Glucose* 93 mg/dL (60-115); Lipase* 36 U/L (23-300); Total Protein* 8.1 g/dL (6.0-8.3)
[2024-06-02 21:50] LABS: HCG Qualitative Serum* Negative (Negative)
[2024-06-02 21:57] LABS: PCR FLU A Negative PCR FLU A (Negative); PCR FLU B Negative PCR FLU B (Negative); PCR RSV Negative PCR RSV (Negative); SARS PCR* Negative SARS-CoV-2 (Negative)
--- OUTSIDE RECORDS SUMMARY | 2024-06-02 22:26 | XMS_ITS | Clinical Summary ---
Author Organization [facility] Address [place], [place] [address] Care Team Providers Care Jewelry Sales Associate Name Role Phone Katina Frazier MD Primary Care Provi roxy Allergies Active Allergy Reactions Criticality Noted Date Comments Codeine Rash 09/20/2010 Penicillins Nausea And Vomiting 03/01/2022 Medications Medication Sig Dispensed Refills Start Date End Date Status busPIRone 7.5 mg tabletIndications:GA D (generalized anxiety disorder),MDD (major depressive disorder), single episode, moderate (HC) Take 2 tablets (15 milligrams) and 1 1/2 tabs (11.25 milligrams ) in the afternoon 105 Tablet 2 01/05/2024 Active dextroamphetamine-am phetamine (Adderall XR) 15 mg Extended-Release capsuleIndications:A DHD, predominantly inattentive type Take 1 Capsule (15 mg) by mouth once daily. 30 Capsule 01/05/2024 Active Amphetamine-Dextroam phetamine (AdderalL) 15 mg tabletIndications:AD HD, predominantly inattentive type Take 1 Tablet (15 mg) by mouth once daily. In the afternoon as needed 30 Tablet 01/05/2024 Active sertraline (ZOLOFT) 50 mg tabletIndications:GA D (generalized anxiety disorder),MDD (major depressive disorder), single episode, moderate (HC) Take 1.5 Tablets (75 mg) by mouth once daily. 135 Tablet 1 01/05/2024 Active dextroamphetamine-am phetamine (Adderall XR) 15 mg Extended-Release capsuleIndications:A DHD, predominantly inattentive type Take 1 Capsule (15 mg) by mouth once daily. 30 Capsule 04/04/2024 Active Amphetamine-Dextroam phetamine (AdderalL) 15 mg tabletIndications:AD HD, predominantly inattentive type Take 1 Tablet (15 mg) by mouth once daily. 30 Tablet 04/04/2024 Active Active Problems Problem Noted Date Diagnosed Date Pap smear for cervical cancer screening 02/15/20 24 Overview (02/15/2024): 01/2024 NIL. Plan: Pap due 01/2027. 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 Nightmares 10/08/2017 Scoliosis 09/20/2010 Von Willebrand disease 09/20/2010 Resolved Problems Problem Noted Date Diagnosed Date Resolved Date Molluscum contagiosum 09/20/20102022 Immunizations Name Administration Dates Next Due AMB Influenza, IIV4 PF (=>6 mos Flulaval,Fluzone Fluarix)(Flu Clinic Only) 04/23/2020 COVID-19 vaccine (Marine Current Turbines NTech 30mcg/0.3mL) 12YO+ BIVALENT PF, MDV 05/27/2022 COVID-19 vaccine (Marine [employer] T[employer]ines NTech 30mcg/0.3mL) PF, MDV 11/28/2020,11/07/2020 DTaP 03/01/2008, 4,06/28/2003,04/28,03/10/2003 HIB PRP-OMP (PedvaxHIB) 07/03/2004,04/28/2003, HPV 9 (Gardasil 9) 10/07/2017,03/03/2016 Hepatitis A (Peds) 05/12/2007,01/15/2006 Hepatitis B (Peds) 01/16/2004,04/28/2003, 003 Inactivated Polio Vaccine 03/01/2008,,04/28/2003,03/10 Influenza, IIV3 (Age 6-35 mos) 05/31/2004,2002 Influenza, IIV3 (Age >=3 years) 05/12/2007 Influenza, IIV4 05/27/2022,05/31/2019 MENINGOCOCCAL VACCINE 2 VIAL 2MO-55YO (MENVEO) 02/13/2020,03/03/2016 MMR 03/01/2008,01/16/2004 Pneumococcal conj 7-Valent (Prevnar 7) 0 02/26/2005,07/03/2004,04/28/2003,03/10 Tdap 03/03/2016 Varicella Vaccine 05/12/2007,01/16/2004 Family History Medical History Relation Name Comments Cancer Father hodgkins lympho ma at 39. Diabetes Maternal Grandfather Heart Disease Maternal Grandfather Bypass Other Maternal Grandfather Guillan [facility] Mother Diabetes Paternal Grandfather Heart Disease Paternal Grandfather Bypass Hyperlipidemia Paternal Grandfather Hypertension Paternal Grandfather Cancer Paternal Grandmother ovarian or uterine Cancer-colon Paternal Grandmother Hyperlipidemia Paternal Grandmother Hypertension Paternal Grandmother Cancer-breast No Family History Relation Name Status Comments Father Maternal Grandfather Mother Paternal Grandfather Paternal Grandmother Social History Tobacco Use Types Packs/Day Years Used Date Smoking Tobacco: Never Passive Smoke Exposure: Never Smokeless Tobacco: Never Tobacco Cessation:Counseling Given: No Alcohol Use Standard Drinks/Week Comments Yes 0 (1 standard drink = 0.6 oz pur e alcohol) occasionally PHQ-2 Answer Date Recorded PHQ-2 TOTAL SCORE 3 02/04/2024 Social Connections Answer Date Recorded Do you often feel lonely or isolated from those around you? 0 01/05/2024 Financial Resource Strain Answer Date R ecorded Difficulty of Paying Living Expenses 3 01/05/2024 Difficulty of Paying Living Expenses Not on file 01/05/2024 Food Insecurity Answer Date Recorded Do you worry your food will run out before you are able to buy more? 1 01/05/2024 Transportation Needs Answer Date Record ed Does lack of transportation keep you from medica l appointments? 1 01/05/2024 Does lack of transportation keep you from work, meetings or getting things that you need? 1 01/05/2024 Housing Stability Answer Date Recorded What is your housing situation today? 1 01/05/2024 Sex and Gender Information Value Date Recorded Sex Assigned at Not on file Gender Identity Not on file Sexual Orientation Not on file Obstetrics History Para Term AB IAB SAB Ectopic Multiple Livin g Live Births 0 0 0 0 0 0 0 0 0 0 0 Last Filed Vital Signs Vital Sign Reading Time Taken Comments Blood Pressure 104/70 02/04/2024 1:50 PM CDT Pulse 77 02/04/2024 1:50 PM CDT Temperature 36.5 ??C (97.7 ??F) 10/30/2021 8:12 AM CD T Respiratory Rate - - Oxygen Saturation 100% 02/04/2024 1:50 PM CDT Inhaled Oxygen Concentration - - Weight 82.3 kg (181 lb 8 oz) 02/04/2024 1:50 PM CDT Height 164 cm (5' 4.57) 02/04/2024 1:50 PM CDT Body Mass Index 30.61 02/04/2024 1:50 PM CDT Plan of Treatment Health Maintenance Due Date Last Done Comments Hepatitis C screening for age 18-79 2020 COVID-19 vaccine series ( season) 2024 05/27/2022, 03/19/2022, 11/28/2020, Additional history exists Influenza for age 9-49 03/20/2024 , 04/23/2020, 05/31/2019, Additional history exists BMI (ht and wt on same day) for age 18+ 02/03/2025 02/04/2024, 01/05/2024, 03/30/2023, Additional history exists Chlamydia for age 16-24 02/03/2025 02/04/2024 Depression screening for age 12+ 02/03/2025 02/04/2024, 01/05/2024, 06/22/2023, Additional history exists Tetanus booster 03/03/2026 03/03/2016 Pap test for age 21-65 02/03/2027 02/04/2024 Pneumococcal series for age 6-64 Aged Out 02/26/2005, 07/03/2004, 04/28/2003, Additional history exists No longer eligible based on patient's age to complete this topic Tdap Completed 03/03/2016 HPV series for age 9-26 Completed 10/07/2017, 03/03 Meningococcal series for age 11-21 Completed 02/13/2020, 03/03/2016 HIV for age 15-65 Completed 02/03/2023 Procedures Procedure Name Priority Date/Time Associated Diagnosis Comments GC CHLAMYDIA TRACH PROBE Routine 02/04/2024 2:15 PM CDT Screening examination for STI PAYROLL ASSISTANT THIN PREP PAP SCREEN IMAGED Routine 02/04/2024 2:15 PM CDT Screening for malignant neoplasm of cervix LC HIV-1/O/2, 4TH GENERATION Routine 02/03/2023 10:37 AM CDT Screening for HIV (human immunodeficiency virus) from Last 3 Months or Most Recently Relevant to Health Maintenance Results * PAYROLL ASSISTANT THIN PREP PAP SCREEN IMAGED [[id number]] (02/04/2024 2:15 PM CDT) Case Report Gynecologic Cytology Report ? Case: [id number] ? Authorizing Provider: ??Katina Frazier ? Collected: ? 02/04/2024 1415 ? MD Davis ? Ordering Location: ? [facility] ?? Received: ?02/04/2024 1445 ? Clinic ? First Screen: ?Kali Morrison ? Specimen: ?PAYROLL ASSISTANT ThinPrep Vial Screening, Cervical ? 02/14/2024 9:11 AM CDT [facility] ENTRAL LABORATORY INTERPRETATION/ RESULT NEGATIVE FOR INTRAEPITHELIAL LESION OR MALIGNANCY (NIL) (none) 02/14/2024 9:11 AM CDT [facility]- ENTRAL LABORATORY IMEN ADEQUACY Satisfactory for evaluation No endocervical component seen 02/14/2024 9:11 AM CDT [facility] ENTRAL LABORATORY Date of LMP 01/21/2024 02/14/2024 9:11 AM CDT [facility] ENTRAL LABORATORY Last Pap Date NA 02/14/2024 9:11 AM CDT [facility]-C ENTRAL LABORATORY Last Pap Result First Pap/Unknown 9:11 AM CDT [facility]-C ENTRAL LABORATORY Abnormal Pap or [place] Bx in last 5 years No 02/14/2024 9:11 AM CDT [facility] ENTRAL LABORATORY Menstrual Status Regular Periods 02/14/2024 9:11 AM CDT [facility]-C ENTRAL LABORATORY [place] Bx Done Today No 02/14/2024 9:11 AM CDT [facility] ENTRAL LABORATORY Additional Information None given 02/14/2024 9:11 AM CDT [facility]-C ENTRAL LABORATORY Comment: Cytology is screened at [facility] - [address], [place] [address] and [facility] - [address] [place] [address], [place] [address] and [facility] - [address], [place] [address] Interpreted at [facility] - [address] [place] [address], [place] [address] Automated Review Successful 02/14/2024 9:11 AM CDT [facility] ENTRAL LABORATORY Comment:Specimen processed s uccessfully by automated statistical technician device, ThinPrep Imaging System, [employer] Note The pap test is a screening technique, not a diagnostic procedure. It is used primarily to screen for squamous cancers and precursor lesions. Published studies have shown that it is subject to both false negative and false positive results. The pap test should not be used as the sole means to diagnose or exclude pre-malignant and malignant lesions. 02/14/2024 9:11 AM CDT [facility]- ENTRAL LABORATORY Other (Cervical) Non-Blood / Unknown 02/04/2024 2:15 PM CDT 02/04/2024 2:45 PM CDT Katina Frazier MD PATHOLOGY/C YTOLOGY [facility] [address] [place] [address], [place] * GC CHLAMYDIA DNA PCR [[id number]] (02/04/2024 2:15 PM CDT) CHLAMYDIA PROBE Negative 1:40 PM CDT [facility] TRAL LABORATORY N GONORRHOEAE PROBE Negative 02/05/2024 1:40 PM CDT [facility] TRAL LABORATORY Other ENDOCERVICAL CYTOLOGIC MATERIAL / Unknown Non-Blood / Unknown 02/04/2024 2:15 PM CDT 02/04/2024 2:45 PM CDT Katina Frazier MD MICROBIOLOG Y [facility] [address] [place] [address], [place] * LC HIV-1/O/2, 4TH GENERATION (02/03/2023 10:37 AM CDT) HIV Scr 4th Gen Non Reactive Non Reactive 02/05/2023 1:10 PM CDT [facility] Comment: HIV Negative HIV-1/HIV-2 antibodies and HIV-1 p24 antigen were NOT detected. There is no laboratory evidence of HIV infection. Blood BLOOD SPECIMEN / Unknown Venipuncture / Unknown 02/03/2023 10:37 AM CDT 02/03/2023 10:37 AM CDT Narrative [facility] - 02/05/2023 1:10 PM CDT Performed at: ??[address] ??[id number] Instrument And Control Service Person: Darion Marie MD, Phone: ??[phone] Katina Frazier MD LABORATORY [facility] [address] [place] [address] from Last 3 Months or Most Recently Relevant to Health Maintenance Care Teams Jewelry Sales Associate Relationship Specialty Start Date End Date Katina Frazier [place] [address] [place] [address] PCP - General Pediatric 06/20/11
--- OUTSIDE RECORDS SUMMARY | 2024-06-02 22:26 | XMS_ITS | Continuity of Care Document ---
Author Organization [facility] Address [address] [place] [address] Phone Care Team Providers Care Compliance Engineer Name Role Phone Cindy Johansen Unavailable Unavailable Allergies, Adverse Reactions, Alerts Substance Reaction Status Criticality PENICILLIN HivesSkin rash Active No Informatio n codeine Skin rashDifficulty breathingswelling Act anastacio No Information Medications Medication Instructions Dosage Effective Dates (start - stop) Status Comments ZOLOFT (unknown strength) Not Available - Active ADDERALL (unknown strength) Not Available - Active Procedures Procedure Date Office/Outpatient Visit,New, [facility] 2022 X Ray Exam Entire Spine 2/3 23 Office/Outpatient Visit,[facility], [facility] 2022 Office/Outpatient Visit,[facility], [facility] 2016 X Ray Exam Entire Spine 2/3 Office/Outpatient Visit,[facility], [facility] 2016 X Ray Exam Entire Spine 2/3 17 Office/Outpatient Visit,[facility], [facility] 2015 X Ray Exam Entire Spine 1 Office/Outpatient Visit,Est, Low 2014 X-Ray Exam Of Total Spine Office/Outpatient Visit,Est, Low 2014 X-Ray Exam Of Total Spine Office/Outpatient Visit,Est, [facility] 2013 X-Ray Exam Of Total Spine Office/outpatient visit,est, [facility] 2010 X-ray exam of total spine Office/outpatient visit,guilherme, mod 2009 X-ray exam of total spine Office/outpatient visit,sumi mccain 2008 X-ray exam of total spine Advance Directives Directive Yes / No Effective Date File Name No Information Encounters Encounter Description Practice Location Reason(s) For Visit Diagnoses Date Provider Providers Copied on Encounter Office/Outpa tient Visit,Sumi Mccain [facility], [address], [place], [place], [id number], [place] tel:[phone] [facility] Congenital scoliosis due to congenital bony malformationSpondy losis without myelopathy or radiculopathy, lumbosacral region [address]. [facility], [address] [place] [address] [address], [place], [place], [id number] , [place]. [phone] Referring Provider: [facility] [address] [facility], [place], [address]. tel:[phone] Office/Outpa tient Visit,Est, Mod [facility], [address], [place], [place], [id number], [place] tel:[phone] [facility] Adolescent idiopathic scoliosis, thoracic regionCongenital scoliosis due to congenital bony malformation 7 [facility]. [facility], [address] [place] [address], [address], [place], [place], [id number] , [place]. [phone] Referring Provider: Katina Norris [employer] [facility] [address] [facility], [place], [address]. tel:[phone] Office/Outpa tient Visit,Est, Mod [facility], [address], [place], [place], [id number], [place] tel:[phone] [facility] Congenital scoliosis due to congenital bony malformationAdoles cent idiopathic scoliosis, thoracic region 7 [facility]. [facility], [address] [place] [address], [address], [place], [place], [id number] , [place]. tel:[phone] Referring Provider: Katina Norris, [employer] [address], [place], [address]. tel:[phone] Office/Outpa tient Visit,Est, Mod [facility], [address], [place], [place], [id number], [place] tel:[phone] [facility] Adolescent idiopathic scoliosis, thoracic regionCongenital scoliosis due to congenital bony malformation 6 Jack Heredia. [facility], [address] [place] [address], [address], [place], [place], [id number] , [place]. tel:[phone] Referring Provider: Katina Norris, [employer] [address] [place] [address], [place], [address]. tel:[phone] Office/Outpa tient Visit,Est, Low [facility], [address], [place], [place], [id number], [place] tel:[phone] [facility] Congenital scoliosis due to congenital bony malformationAdoles cent idiopathic scoliosis, thoracic region 5 Zeina Guadalupe. [facility], [address], [place], [place], [id number] , [place]. [phone] Referring Provider: Katina Norris, [employer] [address] [place] [address], [place], [address]. tel:[phone] [facility], [address], [place], [place], [id number], [place] tel:[phone] [facility] Congenital scoliosis due to congenital bony malformation 5 Zeina Guadalupe. [facility], [address], [place], [place], [id number] , [place]. [phone] Office/Outpa tient Visit,Est, Low [facility], [address], [place], [place], [id number], [place] tel:[phone] [facility] No Information Zeina Guadalupe. [facility], [address] [place] [address] [address], [place], [place], [id number] , [place]. tel:[phone] Referring Provider: Katina Norris, [address], [place], [address]. tel:[phone] [facility], [address], [place], [place], [id number], [place] tel:[phone] [facility] Scoliosis [and kyphoscoliosis], idiopathic Mar-0 9-201 5 Jack Heredia. [facility], [address], [address], [place], [place], [id number] , [place]. tel:[phone] Office/Outpa tient Visit,Est, Mod Z [facility], [address], [place], [place], [facility], [place] tel:[phone] [facility] No Information Sep-3 0 4 Zeina Guadalupe. [facility], [address], [place], [place], [id number] , [place]. tel:[phone] Referring Provider: Carlton Collier, [facility] [address], [place], [place], [facility]. tel:[phone] Z [facility], [address], [place], [place], [facility], [place] tel:[phone] [facility] IDIOPATHIC SCOLIOSIS May- 4 Zeina Guadalupe. [facility], [address], [place], [place], [id number] , [place]. tel:[phone] Office/outpa tient visit,est, mod Z [facility], [address], [place], [place], [facility], [place] tel:[phone] [facility] No Information May-0 8 1 Zeina Guadalupe. [facility], [address], [place], [place], [id number] , [place]. [phone] Referring Provider: Carlton Collier, [facility] [address], [place], [place], [facility]. tel:[phone] Office/outpa tient visit,est, mod Z [facility], [address], [place], [place], [facility], [place] tel:[phone] [facility] No Information 2-201 0 Zeina Guadalupe. [facility], [address], [place], [place], [id number] , . tel:[phone] Referring Provider: Carlton Collier, [facility] [address], [place], [address]. tel:[phone] Office/outpa tient visit,new, mod Z [facility], [address], [place], [place], [facility], [place] tel:[phone] [facility] No Information 9 Zeina Guadalupe. [facility], [address], [place], [place], [id number] , [place]. tel:[phone] Referring Provider: Carlton Collier, [facility] [address], [place], [address]. tel:[phone] Family History Family Member Type Diagnosis Age At Onset No Information Payers Payer name Insurance type Covered libertarian ID Authoriza tion(s) No Information Social History Type Description Quantity Date Captured Comments Sex Female Smoking Status No Information Vital Signs Date / Time: Height Weight BMI Pulse Rate Blood Pressure Temperature Respiratory Rate Body Surface Area Head Circumference Head Circ. Percentile Wt./[place]. Percentile BMI percentile Pulse Ox Inhaled Ox 1:15 PM 64.75 in 78.471 kg (173.00 lbs) 29.0 1 kg/m eter (2) 91 Chief Complaint And Reason For Visit No Information Reason For Referral Reason For Referral No Information Plan Of Treatment Date Type Action Status Future Order: Radiology Order PA Full Spine IB (PAFSIB), Ordered on: Ordered Future Order: Radiology Order PA Full Spine IB (PAFSIB), Ordered on: Ordered Future Order: Radiology Order PA Full Spine (PAFS), Ordered on: Ordered History Of Present Illness Encounter Date Complaint History Of Prese nt Illness No Information Functional Status Date Functional Assessmen t No Information Instructions Date Instruction Additional Infor mation No Information Assessments Type Assessment Date assessment Congenital scoliosis due to shailesh enital bony malformation assessment Spondylosis without myelopathy or radiculopathy, lumbosacral region Patient Care Teams Name Effective Dates (start - stop) Status Members No Information
--- OUTSIDE RECORDS SUMMARY | 2024-06-02 22:26 | XMS_ITS | Continuity of Care Document ---
Author Organization [facility] Address [address] [place] [address] Phone Care Team Providers Care Registered Clinical Dietitian Name Role Phone Cindy Johansen Unavailable Unavailable Allergies, Adverse Reactions, Alerts Substance Reaction Status Criticality PENICILLIN HivesSkin rash Active No Informatio n codeine Skin rashDifficulty breathingswelling Act anastacio No Information Medications Medication Instructions Dosage Effective Dates (start - stop) Status Comments ZOLOFT (unknown strength) Not Available - Active ADDERALL (unknown strength) Not Available - Active Procedures Procedure Date Office/Outpatient Visit,New, [facility] 2022 X Ray Exam Entire Spine 2/3 23 Office/Outpatient Visit,[facility], [facility] 2022 Office/Outpatient Visit,[facility], [facility] 2016 X Ray Exam Entire Spine 2/3 Office/Outpatient Visit,[facility], [facility] 2016 X Ray Exam Entire Spine 2/3 17 Office/Outpatient Visit,[facility], [facility] 2015 X Ray Exam Entire Spine 1 Office/Outpatient Visit,Est, Low 2014 X-Ray Exam Of Total Spine Office/Outpatient Visit,Est, Low 2014 X-Ray Exam Of Total Spine Office/Outpatient Visit,Est, [facility] 2013 X-Ray Exam Of Total Spine Office/outpatient visit,est, [facility] 2010 X-ray exam of total spine Office/outpatient visit,guilherme, mod 2009 X-ray exam of total spine Office/outpatient visit,sumi mccain 2008 X-ray exam of total spine Advance Directives Directive Yes / No Effective Date File Name No Information Encounters Encounter Description Practice Location Reason(s) For Visit Diagnoses Date Provider Providers Copied on Encounter Office/Outpa tient Visit,Sumi Mccain [facility], [address], [place], [place], [id number], [place] tel:[phone] [facility] Congenital scoliosis due to congenital bony malformationSpondy losis without myelopathy or radiculopathy, lumbosacral region 3 Kd White. [facility] [place], [address] [place] [address] [address], [place], [place], [id number] , [place]. [phone] Referring Provider: Katina Norris [facility], [place], [address]. tel:[phone] Office/Outpa tient Visit,Est, Mod [facility], [address], [place], [place], [id number], [place] tel:[phone] [facility] Adolescent idiopathic scoliosis, thoracic regionCongenital scoliosis due to congenital bony malformation 7 [facility]. [facility] [place], [address] [place] [address], [address], [place], [place], [id number] , [place]. [phone] Referring Provider: Katina Norris Lily [employer] [facility] [address] [facility], [place], [address]. tel:[phone] Office/Outpa tient Visit,Est, Mod [facility], [address], [place], [place], [id number], [place] tel:[phone] [facility] Congenital scoliosis due to congenital bony malformationAdoles cent idiopathic scoliosis, thoracic region 7 [facility]. [facility] [place], [address] [place] [address], [address], [place], [place], [address] , [place]. tel:[phone] Referring Provider: Katina Norris, [employer] [address], [place], [address]. tel:[phone] Office/Outpa tient Visit,Est, Mod [facility], [address], [place], [place], [id number], [place] tel:[phone] [facility] Adolescent idiopathic scoliosis, thoracic regionCongenital scoliosis due to congenital bony malformation 6 Jack Heredia. [facility], [address] [place] [address], [address], [place], [place], [id number] , [place]. tel:[phone] Referring Provider: Katina Norris, [employer] [address] [place] [address], [place], [address]. tel:[phone] Office/Outpa tient Visit,Est, Low [facility], [address], [place], [place], [id number], [place] tel:[phone] [facility] Congenital scoliosis due to congenital bony malformationAdoles cent idiopathic scoliosis, thoracic region 5 Zeina Guadalupe. [facility], [address], [place], [place], [address] , [place]. [phone] Referring Provider: Katina Norris, [employer] [address] [place] [address], [place], [address]. tel:[phone] [facility], [address], [place], [place], [address], [place] tel:[phone] [facility] Congenital scoliosis due to congenital bony malformation 5 Zeina Guadalupe. [facility], [address], [place], [place], [address] , [place]. [phone] Office/Outpa tient Visit,Est, Low [facility], [address], [place], [place], [address], [place] tel:[phone] [facility] No Information Zeina Guadalupe. [facility], [address] [place] [address] [address], [place], [place], [address] , [place]. tel:[phone] Referring Provider: Katina Norris, [address], [place], [address]. tel:[phone] [facility], [address], [place], [place], [address], [place] tel:[phone] [facility] Scoliosis [and kyphoscoliosis], idiopathic Mar-0 9-201 5 Jack Heredia. [facility], [address], [address], [place], [place], [address] , [place]. tel:[phone] Office/Outpa tient Visit,Est, Mod Z [facility] [place], [address], [place], [place], [facility], [place] tel:[phone] [facility] No Information Sep-3 0 4 Zeina Guadalupe. [facility] [place], [address], [place], [place], [id number] , [place]. tel:[phone] Referring Provider: Carlton Collier, [facility] [address], [place], [place], [facility]. tel:[phone] Z [facility], [address], [place], [place], [facility], [place] tel:[phone] [facility] IDIOPATHIC SCOLIOSIS May- 4 Zeina Guadalupe. [facility] [place], [address], [place], [place], [address] , [place]. tel:[phone] Office/outpa tient visit,est, mod Z [facility], [address], [place], [place], [facility], [place] tel:[phone] [facility] No Information May-0 8 1 Zeina Guadalupe. [facility] [place], [address], [place], [place], [address] , [place]. [phone] Referring Provider: Carlton Collier, [facility] [address], [place], [place], [facility]. tel:[phone] Office/outpa tient visit,est, mod Z [facility], [address], [place], [place], [facility], [place] tel:[phone] [employer] [facility] No Information 2-201 0 Zeina Guadalupe. [facility], [address], [place], [place], [address] , . tel:[phone] Referring Provider: Carlton Collier, [facility] [address], [place], [address]. tel:[phone] Office/outpa tient visit,new, mod Z [facility], [address], [place], [place], [facility], [place] tel:[phone] [employer] [facility] No Information 9 Zeina Guadalupe. [facility], [address], [place], [place], [address] , [place]. tel:[phone] Referring Provider: Carlton Collier, [facility] [address], [place], [address]. tel:[phone] Family History Family Member Type Diagnosis Age At Onset No Information Payers Payer name Insurance type Covered alliance party ID Authoriza tion(s) No Information Social History [...]
[2024-06-02] MEDS: 0.9 % SODIUM CHLORIDE 500 ML 500 ML 1000 ML IV ×2 (22:27→22:28)
[2024-06-02] MEDS: ONDANSETRON 2 MG/ML inj 4 MG IVP (22:47)
== END 2024-06-02 23:33 | disposition home or self-care (01) ==
PROVIDERS: Emergency Provider Student in an Organized Health Care Education/Training Program; PCP Pediatrics
DX: R11.2 Nausea with vomiting, unspecified (principal)
CPT/HCPCS: 36415; 80048; 80076; 83690; 84703; 85025; 87631; 96374; 99283; A9270; J2405; J7030